=== PATIENT | female | born 1985 | race Caucasian/White ===

== ENCOUNTER 2020-01-25 09:51 | Emergency (ER) | payer SELFPAY ==
[~2020-01-25] VITALS: Ht 162.6 cm; Wt 72.8 kg
[2020-01-25 09:56] VITALS: BP 133/62
--- NOTE | 2020-01-25 10:22 | NUR ---
PT STATED SHE IS ABLE TO MINIMALLY AMBULATE ON LEFT FOOT. PT STATED SHE DID FILE A POLICE REPORT FOR INCIDENT IT WAS INTENTIONAL.
[2020-01-25] MEDS ORDERED: KETOROLAC 30 MG/1 ML ONE (10:29)
[2020-01-25] MEDS ORDERED: KETOROLAC 30 MG/1 ML IM ONE (10:30)
== END 2020-01-25 11:29 | disposition home or self-care (01) ==
LOC: ED 10:51
DX: S90.112A Contusion of left great toe without damage to nail, initial encounter (principal); W23.0XXA Caught, crushed, jammed, or pinched between moving objects, initial encounter; Y93.89 Activity, other specified; Y92.098 Other place in other non-institutional residence as the place of occurrence of the external cause; Y99.8 Other external cause status
CPT/HCPCS: 73630; 96372; 99283; J1885